=== PATIENT | male | born 1945 | race Caucasian/White ===

== ENCOUNTER 2022-09-28 14:30 | Outpatient (RCR) | payer MEDICARE, OTHER, SELFPAY ==
--- NOTE | 2022-07-30 06:34 | URNOTE ---
Request received for authorization for [employer] ([id number]). Prior authorization is not required as services are based on medical necessity and follow Medicare guidelines.
[2022-07-31 14:07] VITALS: BP 121/75; PULSE 53; RESP 16; TEMP 36.8; O2SAT 93
[2022-08-31 09:56] VITALS: BP 114/66; PULSE 66; RESP 16; TEMP 36.2; O2SAT 96
[2022-08-31] MEDS: DEGARELIX ACETATE 80 MG INJ SUBCUT (10:19)
--- NOTE | 2022-09-27 14:42 | URNOTE ---
Request received for authorization for [employer] ([id number]). Prior authorization is not required as services are based on medical necessity and follow Medicare guidelines.
[2022-09-28] MEDS: LEUPROLIDE ACETATE 22.5 MG (SQ) SYRINGE SUBCUT (14:48)
[2022-09-28 14:54] VITALS: BP 124/68; PULSE 75; RESP 16; TEMP 36.7; O2SAT 95
== END 2023-01-27 23:59 | disposition home or self-care (01) ==
LOC: CCIC 14:30
PROVIDERS: PCP Internal Medicine; Referring Provider Internal Medicine; Visit Provider Clinical Nurse Specialist
DX: C61 Malignant neoplasm of prostate (principal)
CPT/HCPCS: 72195; 96401; J9155; J9217